=== PATIENT | female | born 1935 | race Asian ===

== ENCOUNTER 2019-08-24 11:55 | Emergency (ER) | payer OTHER, MEDICAID ==
[~2019-08-24] VITALS: Ht 162.6 cm; Wt 63.5 kg
--- NOTE | 2019-08-24 12:00 | NUR ---
Placed in room 06 . Placed on cabin outfitter, blood pressure machine and pulse oximeter. To gown for exam. Side rails up. Report given to Amirah SINGH.
[2019-08-24 12:08] VITALS: BP_SYST 105
--- NOTE | 2019-08-24 12:12 | NUR ---
ER Dr. Prieto at bedside examining patient.
[2019-08-24] MEDS ORDERED: NACL 0.9% 1,000 ML IV ONE (12:13)
--- NOTE | 2019-08-24 12:18 | NUR ---
Patient presented to ER with C/O cough, congestion X 6 day w/bloody sputum. Patient A&Ox3, afebrile, responding to questions non-verbally, skin pink and warm, cap refill <3, cough with clear sputum, nasal congestion, pain 0/10, denies n/v/d. Patient sent from [facility] with C/O cough, congestion X6 days.
--- NOTE | 2019-08-24 12:20 | NUR ---
# 20 gauge angiocath placed to right AC . Use of asceptic technique. Opsite placed over site. Blood return noted. Blood for lab drawn from site. Flushed with 10 cc of normal saline. No evidence of infiltration noted. Patient tolerated well.
[2019-08-24 12:34] LABS: BASOPHILS % (AUTO) 0.2 % (0.0-2.0); EOSINOPHILS # (AUTO) 0.1 K/uL (0.0-0.4); EOSINOPHILS % (AUTO) 1.5 % (0.0-4.0); HEMATOCRIT 36.5 % (36-48); LYMPHOCYTES # (AUTO) 1.7 K/uL (1.0-5.5); MEAN CORPUSCULAR HEMOGLOBIN 31 pg (27-31); MEAN CORPUSCULAR HGB CONC 33 % (32-36); MEAN CORPUSCULAR VOLUME 93 fL (79.0-98.0); MONOCYTES # (AUTO) 0.6 K/uL (0.0-1.0); MONOCYTES % (AUTO) 10.4 % (1.7-9.3); NEUTROPHILS # (AUTO) 3.7 K/uL (1.8-7.7); NEUTROPHILS % (AUTO) 59.9 % (40.0-70.0); PLATELET COUNT (AUTO) 164 K/uL (130-430); RED BLOOD CELL COUNT(AUTO) 3.94 MIL/uL (4.2-6.2); RED CELL DISTRIBUTION WIDTH 14.9 % (9.0-15.0); WHITE BLOOD COUNT (AUTO) 6.2 K/uL (4.8-10.8)
--- NOTE | 2019-08-24 12:40 | NUR ---
Radiology at bedside for portable x-ray.
[2019-08-24 12:56] LABS: CALCIUM 8.4 mg/dL (8.4-11.0); CHLORIDE 105 mmol/L (98-107); CREATININE 0.66 mg/dL (0.55-1.30); GLUCOSE 103 mg/dL (70-99); POTASSIUM 3.5 mmol/L (3.5-5.1); SODIUM SERUM 139 mmol/L (136-145); UREA NITROGEN, BLOOD 19 mg/dL (8-21)
[2019-08-24 13:00] LABS: ANION GAP < 3 (5-15)
[2019-08-24 13:01] LABS: ALANINE AMINOTRANSFERASE 30 U/L (12-78); ALBUMIN 3.1 g/dL (3.4-4.8); ASPARTATE AMINOTRANSFERASE 29 U/L (10-37); TOTAL BILIRUBIN 0.5 mg/dL (0.0-1.0)
--- NOTE | 2019-08-24 14:10 | NUR ---
Patient sitting up in [facility].
--- NOTE | 2019-08-24 15:20 | NUR ---
Discharge pending transport arrangements
[2019-08-24 16:30] VITALS: BP_SYST 105
--- NOTE | 2019-08-24 16:30 | NUR ---
Patient given written and verbal discharge instructions and verbalizes understanding. ER MD discussed with patient the results and treatment provided. Patient in stable condition. ID arm band removed. IV catheter removed intact and dressing applied, no active bleeding. Rx of Levaquin given. Patient educated on pain management and to follow up with PMD. Pain Scale 2/10 tolerable for patient . Patient to be discharge back to [facility]. Patient belongings sent with patient. Report called to Devyn GONZALEZ at receiving facility. [facility] ambulance service has been called for transfer. ETA is 20 min.
== END 2019-08-24 16:30 | disposition home or self-care (01) ==
LOC: SED 11:55
DX: N39.0 Urinary tract infection, site not specified (principal); R04.2 Hemoptysis; J40 Bronchitis, not specified as acute or chronic
CPT/HCPCS: 36415; 71045; 80053; 81002; 83605; 85025; 87040; 93005; 99284; J7030